=== PATIENT | female | born 1975 | race Caucasian/White ===

== ENCOUNTER 2017-09-13 05:57 | Emergency (ER) | payer OTHER ==
[~2017-09-13] VITALS: Ht 157.5 cm; Wt 88.9 kg
[~2017-09-13 05:57] MED LIST: BIRTH CONTROL PILL; FLEXERIL PO; GABAPENTIN 100100 MG PO; NORCO 5-325 TA1 EAC1 PO; PERCOCET 5-3251 EACH PO; WELLBUTRIN SR150 MG PO
[2017-09-13] MEDS ORDERED: PRILOSEC (06:04)
[2017-09-13] MEDS ORDERED: CYMBALTA (06:04)
[2017-09-13] MEDS ORDERED: ? B/P MED (06:04)
[2017-09-13] MEDS ORDERED: [UNRECOGNIZED DRUG - REMARK] (06:05)
[2017-09-13 06:39] LABS: URINE BILIRUBIN NEGATIVE (Negative); URINE BLOOD NEGATIVE (Negative); URINE CLARITY CLEAR; URINE COLOR YELLOW; URINE GLUCOSE-RANDOM NEGATIVE (Negative); URINE KETONES NEGATIVE (Negative); URINE LEUKOCYTES-REFLEX NEGATIVE (Negative); URINE NITRITE-REFLEX NEGATIVE (Negative); URINE PROTEIN TRACE (Negative); URINE SPECIFIC GRAVITY 1.025 (1.005-1.030); URINE UROBILINOGEN 0.2 E.U./dl (0.2-1.0)
[2017-09-13 06:48] LABS: ABSOLUTE BASOPHILS 0.1 thou/uL (0.0-0.2); ABSOLUTE EOSINOPHILS 0.2 thou/uL (0.0-0.7); ABSOLUTE LYMPHOCYTES 1.6 thou/uL (0.8-5.3); ABSOLUTE MONOCYTES 0.9 thou/uL (0.0-1.2); BASOPHILS 0.6 %; EOSINOPHILS 1.7 %; HEMATOCRIT 36.1 % (37.0-47.0); HEMOGLOBIN 12.3 gm/dL (12.0-15.0); LYMPHOCYTES 16.5 %; MCH 30.9 pg (26.0-34.0); MCHC 34.2 g/dL (28.0-37.0); MCV 90.6 fL (80.0-100.0); MPV 6.9 fl. (7.2-11.1); NUCLEATED RBCS 0 /100WBC; PLATELET COUNT* 339 thou/uL (150-400); POLYS 72.2 %; RBC 3.98 mil/uL (4.20-5.00); RDW-CV 14.1 % (10.5-14.5); WBC 9.7 thou/uL (4.0-11.0)
[2017-09-13 06:54] LABS: ANION GAP 7 mmol/L (7-16); BUN 9 mg/dL (7-18); CALCIUM 9.2 mg/dL (8.5-10.1); CHLORIDE 106 mmol/L (98-107); CO2 29 mmol/L (21-32); CREATININE 0.7 mg/dL (0.6-1.3); GLUCOSE 106 mg/dL (70-99); SODIUM 142 mmol/L (136-145)
[2017-09-13 07:05] LABS: ALBUMIN 3.6 g/dL (3.4-5.0); ALKALINE PHOSPHATASE 84 U/L (46-116); SGPT 13 U/L (30-65); TOTAL BILIRUBIN 0.2 mg/dL (<0.1-1.0)
[2017-09-13 07:18] LABS: SGOT < 5 U/L (15-37)
[2017-09-13] MEDS ORDERED: NORCO 5-325 TA1 EACH PO (07:54)
[2017-09-13] MEDS ORDERED: CIPROFLOXACIN500 M1 PO (07:54)
[2017-09-13 08:11] VITALS: BP 155/70
== END 2017-09-13 08:15 | disposition home or self-care (01) ==
LOC: M.ERS 05:57
PROVIDERS: Emergency Medicine
DX: R10.31 Right lower quadrant pain (principal); N30.90 Cystitis, unspecified without hematuria; M79.7 Fibromyalgia; F17.210 Nicotine dependence, cigarettes, uncomplicated; Z98.890 Other specified postprocedural states; Z90.49 Acquired absence of other specified parts of digestive tract

== ENCOUNTER → 2017-11-03 | Outpatient (CLI) | payer OTHER ==
[~2017-11-03] MED LIST changes: +? B/P MED; +CIPROFLOXACIN500 M1 PO; +CYMBALTA; +NORCO 5-325 TA1 EACH PO; +PRILOSEC; +[UNRECOGNIZED DRUG - REMARK]
== END ==
LOC: M.RAD 13:00
DX: R92.8 Other abnormal and inconclusive findings on diagnostic imaging of breast (principal); N61.0 Mastitis without abscess